=== PATIENT | female | born 1985 ===

== ENCOUNTER 2024-06-07 16:18 | Outpatient (AMB) | payer OTHER, SELFPAY ==
--- NOTE | 2024-06-07 16:25 | AM.OFFWIN_ITS ---
Intake Vital Signs 3 06/07/24 16:29 Weight 151 lb BP 124/80 Blood Pressure Location Lt brachial Position Sitting Intake Visit Reasons: [employer] Allergic reaction? rash Intake Note: Patient here for rash on hands that has been present for about 2 months. Patient Tobacco Use Status: Never used Tobacco Allergies No Known Allergies Allergy (Verified 06/07/24 16:29) Do you need a note to return to daycare/school/sports/work: No HPI HPI Comments 2 History of Present Illness0 Details 39 y/o Female patient who presents to [facility] walk in clinic with c/o Swelling and skin discoloration on B/L fingers for 2 months now. Reports some itching of the skin on the upper Digits. Pt was seen multiple times at [facility] for this concerns where she was given Prednisone Oral and Steroid Creams (Triamcinolone). States that Prednisone Helped with swelling of fingers. Steroid Cream helps with itching and she used it for 2 weeks and stopped. Pt does not have a PCP and has not been seen for years. Reports no known medical problems at this time. She denies taking any medications. She works as a [employer]. Pt uses [employer] alot, thinks it might the cause of her condition. [facility] Medical History (Updated 06/07/24 @ 17:15 by Serene Henley NP) Dry skin dermatitis Swelling of finger of both hands Social History Patient Tobacco Use Status: Never used Tobacco Review of Systems Const All systems reviewed & are unremarkable except as noted in HPI and below Physical Exam Vital Signs: Last Vital Signs BP 124/80 06/07/24 16:29 Const General: no acute distress Nutritional Appearance: well nourished Orientation/consciousness: patient oriented x3 Skin Other: No visible rash present, Skin Dry/cold and discolored digits (Dark brownish/Dark Purplish) color. Discoloration from Proximal to Distal Phalanges. General skin exam: dry skin Neuro General: patient oriented x3, gait normal and moves all extremities Extrem Hand/finger images: 2 1. No visible rash present, Skin Dry and discolored digits (Dark brownish/Dark Purplish) color. Discoloration from Proximal to Distal Phalanges. 2. No visible rash present, Skin Dry and discolored digits (Dark brownish/Dark Purplish) color. Discoloration from Proximal to Distal Phalanges. Psych Speech and movement: Normal speech and movement present Assessment & Plan Assessment & Plan (1) Swelling of finger of both hands: Code(s): M79.89 - Other specified soft tissue disorders Plan: Discontinue All Steroid creams, ineffective at this time. Advised to Call [facility], [place], [facility] DDx's: Vasculitis vs Reynaud's syndrome vs RA vs OA (2) Dry skin dermatitis: Code(s): L85.3 - Xerosis cutis Plan: Stop Using [employer] at work or home. Moisturize skin with Vaseline, Eucecrine creams. Coding Level of Care Code New Pt Level 4 (07952) Diagnoses Swelling of finger of both hands M79.89 Dry skin dermatitis L85.3 Time Spent (min) 20
[2024-06-07 16:29] VITALS: BP 124/80
== END 2024-06-07 17:02 | disposition home or self-care (01) ==
PROVIDERS: Visit Provider Nurse Practitioner Family
DX: M79.89 Other specified soft tissue disorders (principal); L85.3 Xerosis cutis

== ENCOUNTER → 2024-06-07 16:18 | Outpatient (BNVA) | payer OTHER, SELFPAY | DX: R60.0 Localized edema (principal); L85.3 Xerosis cutis | CPT/HCPCS: 99202 ==